=== PATIENT | male | born 1940 | race Caucasian/White ===

== ENCOUNTER 2017-01-12 07:46 | Day surgery (SDC) | payer MEDICARE, BC ==
[~2017-01-12 07:46] MED LIST: PROPOFOL 500 MG/50 ML EMU IV ONE
[2017-01-12 10:25] VITALS: BP 109/69; PULSE 81; RESP 20; TEMP 97.3; O2SAT 96
== END 2017-01-12 10:35 | disposition home or self-care (01) | DRG 951 ==
LOC: SURG 07:46
PROVIDERS: ATTEND Surgery
DX: Z12.11 Encounter for screening for malignant neoplasm of colon (principal); K63.5 Polyp of colon; Z80.0 Family history of malignant neoplasm of digestive organs; Z86.010 Personal history of colon polyps
CPT/HCPCS: J2704